=== PATIENT | male | born 1980 | race Two or more races ===

== ENCOUNTER 2017-02-09 10:29 | Emergency (ER) | payer SELFPAY ==
[~2017-02-09] VITALS: Ht 162.6 cm; Wt 104.3 kg
[2017-02-09 10:59] VITALS: BP 106/80
[2017-02-09] MEDS ORDERED: KETOROLAC TROMETH 60MG/2ML VIAL IM ONE (11:45)
== END 2017-02-09 12:45 | disposition home or self-care (01) ==
LOC: ER 10:42
DX: S93.401A Sprain of unspecified ligament of right ankle, initial encounter (principal); X50.1XXA Overexertion from prolonged static or awkward postures, initial encounter; Y93.89 Activity, other specified; Y99.8 Other external cause status; Y92.89 Other specified places as the place of occurrence of the external cause
CPT/HCPCS: 73610; 96372; 99284; J1885

== ENCOUNTER 2017-12-12 17:02 | Emergency (ER) | payer MEDICAID ==
[~2017-12-12] VITALS: Ht 162.6 cm; Wt 105.2 kg
[2017-12-12 17:22] VITALS: BP 149/96
== END 2017-12-12 18:14 | disposition home or self-care (01) ==
LOC: ER 17:04
DX: I10 Essential (primary) hypertension (principal)

== ENCOUNTER 2018-01-31 07:24 | Emergency (ER) | payer SELFPAY ==
[~2018-01-31] VITALS: Ht 162.6 cm; Wt 104.3 kg
[2018-01-31 07:50] VITALS: BP 144/84
[2018-01-31] MEDS ORDERED: KETOROLAC TROMETH 30 MG/ML 1ML VIAL IV ONE (09:00)
== END 2018-01-31 09:09 | disposition home or self-care (01) ==
LOC: ER 07:24 → EDBD 07:24 → EDUNIT# 07:24 → ER 09:09
DX: S29.011A Strain of muscle and tendon of front wall of thorax, initial encounter (principal); I10 Essential (primary) hypertension; V43.52XA Car driver injured in collision with other type car in traffic accident, initial encounter; Y93.89 Activity, other specified; Y92.410 Unspecified street and highway as the place of occurrence of the external cause; Y99.8 Other external cause status
CPT/HCPCS: 71046; 96374; 99284; J1885

== ENCOUNTER 2018-02-04 13:16 | Emergency (ER) | payer SELFPAY ==
[~2018-02-04] VITALS: Ht 162.6 cm; Wt 106.6 kg
[2018-02-04 14:42] VITALS: BP 138/82
== END 2018-02-04 14:51 | disposition home or self-care (01) ==
LOC: ER 13:16
DX: Z04.1 Encounter for examination and observation following transport accident (principal); I10 Essential (primary) hypertension; F15.10 Other stimulant abuse, uncomplicated

== ENCOUNTER 2022-06-01 05:20 | Emergency (ER) | payer SELFPAY ==
[~2022-06-01] VITALS: Ht 162.6 cm; Wt 104.5 kg
[2022-06-01] MEDS ORDERED: SODIUM CHLORIDE 0.9% 1,000 ML IV ONE ×2 (07:45)
[2022-06-01] MEDS ORDERED: THIAMINE 100mg/ml INJ (200mg/2ml VIAL) IV ONE (07:45)
[2022-06-01 08:09] LABS: Basophils # (auto) 0 10 ^3/uL (0-0.2); Basophils % (auto) 0.6 % (0.0-2.0); Eosinophils # (auto) 0.1 10 ^3/uL (0-0.8); Eosinophils % (auto) 0.7 % (0.0-7.0); Hemoglobin 15.5 g/dL (13.5-17.5); Lymphocytes # (auto) 1.2 10 ^3/uL (0.4-5.4); Lymphocytes % (auto) 14.7 % (10.0-50.0); Mean Corpuscular Hemoglobin 31.8 pg (28.0-32.0); Mean Corpuscular Hgb Conc. 33.7 g/dL (32.0-36.0); Mean Corpuscular Volume 94.3 fL (80.0-100.0); Monocytes # (auto) 0.6 10 ^3/uL (0-1.3); Monocytes % (auto) 7.9 % (0.0-12.0); Neutrophils % (auto) 76.1 % (37.0-80.0); Nucleated Red Blood Cells % 0.1 %; Red Blood Cells 4.87 10^6/uL (4.5-5.90); Red Cell Distribution Width 13.7 % (11.8-14.3); White Blood Cell 7.8 10^3/uL (4.4-10.8)
[2022-06-01 08:27] LABS: Albumin 3.4 g/dL (3.4-5.0); Anion Gap 7 (5-15); Blood Alcohol < 3.0 mg/dL (0-5); Blood Urea Nitrogen 7 mg/dL (7-18); Calcium 8.8 mg/dL (8.5-10.1); Carbon Dioxide 25 mmol/L (21-32); Chloride 106 mmol/L (98-107); Glucose 133 mg/dL (74-106); Potassium 4.1 mmol/L (3.5-5.1); Sodium 138 mmol/L (136-145)
[2022-06-01 08:30] LABS: Alanine Aminotransferase 67 U/L (16-61); Alkaline Phosphatase 116 U/L (45-117); Aspartate Aminotransferase 59 U/L (15-37); BUN/Creatinine Ratio 8.3; Bilirubin, Total 0.6 mg/dL (0.2-1.0); GFR African American 129 mL/min; GFR Non-African American 107 mL/min; Total Protein 7.5 g/dL (6.4-8.2)
[2022-06-01 11:00] VITALS: BP 140/90
== END 2022-06-01 12:07 | disposition home or self-care (01) ==
LOC: EDBD 05:20 → ER 05:20
DX: F10.129 Alcohol abuse with intoxication, unspecified (principal); E86.0 Dehydration; Y90.8 Blood alcohol level of 240 mg/100 ml or more
CPT/HCPCS: 36415; 71045; 80053; 80320; 85025; 96361; 96374; 99284; J3411; J7030